=== PATIENT | female | born 1950 | race Caucasian/White ===

== ENCOUNTER 2023-10-01 09:30 | Oncology outpatient (recurring) (ONCR) | payer MEDICARE, SELFPAY ==
[2023-09-24 15:57] LABS: Reticulocyte % 0.7 % (0.5-2.0)
[2023-09-24 15:58] LABS: Basophils # 0.1 10^3/uL (0.0-0.1); Basophils % 0.3 %; Eosinophils % 0.1 %; Hematocrit 29.2 % (36-47); Lymphocytes # 16.6 10^3/uL (0.8-4.8); Lymphocytes % 84.1 %; Mean Corpuscular HGB Conc 30.5 g/dL (30-55); Mean Corpuscular Hemoglobin 27.1 pg (27-33); Mean Corpuscular Volume 88.8 fl (85-98); Mean Platelet Volume 11.8 fL (7.4-10.4); Monocytes # 0.5 10^3/uL (0.2-0.9); Monocytes % 2.5 %; Neutrophils # 2.08 10^3/uL (1.8-7.7); Neutrophils % 10.4 %; Nucleated Red Blood Cells # 0.1 /100WBC; Nucleated Red Blood Cells % 0.6 %; Red Blood Count 3.29 10^6/uL (3.85-5.65); Red Cell Distribution Width 19.7 % (12.1-15.1); White Blood Count 19.75 10^3/uL (3.29-11.43)
[2023-09-24 16:11] LABS: INR 1.13 (0.8-1.2)
[2023-09-24 16:12] LABS: Partial Thromboplastin Time 19.2 SECONDS (23.9-36.7)
[2023-09-24 16:22] LABS: LAB Peripheral Smear Sent for Review
[2023-09-24 16:23] LABS: Alanine Aminotransferase 22 U/L (0-33); Albumin Level 3.2 g/dL (3.5-5.2); Alkaline Phosphatase 128 U/L (35-105); Anion Gap 14.4 (5-19); Aspartate Amino Transferase 55 U/L (0-32); Blood Urea Nitrogen 30 mg/dL (8-23); Calcium 8.8 mg/dL (8.5-10.5); Carbon Dioxide 26 mmol/L (22-29); Chloride 102 mmol/L (98-107); Globulin 4.9 g/dL (1.3-4.6); Glucose 139 mg/dL (65-115); Lactate Dehydrogenase 347 U/L (135-214); Osmolality Calculated 292 mOsm/kg (285-295); Potassium 5.4 mmol/L (3.5-5.1); Sodium 137 mmol/L (136-145); Total Bilirubin 0.7 mg/dL (0.15-1.2); Total Protein 8.1 g/dL (6.6-8.7); Uric Acid 7.8 mg/dL (2.4-5.7)
[2023-09-24 16:39] LABS: Platelet Count 16 10^3/cmm (157-399)
[2023-09-24 16:40] LABS: Slide Review Slide Review Perform
[2023-09-24 16:47] LABS: Hepatitis A Antibody IgM Non-Reactive (Nonreactive); Hepatitis B Core AB, Total Non-Reactive (Nonreactive); Hepatitis B Surface AB 7.5 (11.5-1000); Hepatitis B Surface Antigen Non-Reactive (Nonreactive); Hepatitis C Virus Antibody Non-Reactive (Nonreactive)
[2023-09-24 17:01] LABS: Ferritin 870 ng/mL (15-150); Iron 51 ug/dL (37-145); Percent Saturation 26.9 % (20-50); Total Iron Binding Capacity 189 mcg/dl; Unsaturated Iron Binding 138 ug/dL (112-347)
[2023-09-24 17:16] LABS: Vitamin B12 489 pg/mL (232-1245)
[2023-09-27 23:34] LABS: Methylmalonic Acid 387 nmol/L (87-318)
== END 2023-10-17 23:59 | disposition home or self-care (01) ==
PROVIDERS: Internal Medicine; PCP Family Medicine; Visit Provider Family Medicine
DX: D69.6 Thrombocytopenia, unspecified (principal)
CPT/HCPCS: 36415; 80053; 80503; 82607; 82728; 82746; 83010; 83540; 83550; 83615; 83735; 83921; 84100; 84550; 85025; 85045; 85610; 85730; 86705; 86706; 86709; 86803; 86880; 87340; 99204